=== PATIENT | male | born 1975 | race Caucasian/White ===

== ENCOUNTER 2017-09-17 08:52 | Emergency (ER) | payer OTHER ==
[2017-09-17 09:21] LABS: % BASOPHILS 0.5 % (0.0-2.0); % EOSINOPHILS 1.1 % (0.0-5.0); % LYMPHOCYTES 27.2 % (20.0-50.0); % MONOCYTES 5.1 % (2.0-10.0); % NEUTROPHILS 66.1 % (40.0-80.0); EOSINOPHILE ABSOLUTE 0.1 Th/cmm (0.1-0.4); HEMATOCRIT 45.5 % (41.0-60); HEMOGLOBIN 15.7 gm/dL (12-16); LYMPHOCYTE ABSOLUTE 2.6 Th/cmm (1.5-3.0); MEAN CORPUSCULAR HEMOGLOBIN 30.8 pg (26.0-30.0); MEAN CORPUSCULAR HGB CONC 34.5 pg (28.0-36.0); MEAN PLATELET VOLUME 7.8 fl; MONOCYTE ABSOLUTE 0.5 Th/cmm (0.3-1.0); NEUTROPHILE ABSOLUTE 6.3 Th/cmm (1.8-8.0); PLATELET COUNT 273 Th/cmm (150-400); RED BLOOD COUNT 5.11 Mil/cmm (4.30-5.70); RED CELL DISTRIBUTION WIDTH 11.9 % (11.5-20.0); WHITE BLOOD COUNT 9.5 Th/cmm (4.8-10.8)
[2017-09-17] MEDS: Sodium Chloride 0.45% 1,000 ML IV ONE (09:23)
--- NOTE | 2017-09-17 09:23 | ED Physician Chart ---
ED Chief Complaint/HPI - Patient Information Date Seen:: 09/17/17 Time Seen:: 09:07 Chief Complaint:: ABDOMINAL PAIN History of Present Illness:: THIS IS A 41 YO OBESE MALE WHO HAS HAD SEVERAL DAYS OF ABDOMINAL PAIN AND WAS GIVEN PROTONIX WHICH HE TOOK WITHOUT RELIEF. THE PATIENT ADMITS TO NAUSEA BUT NO VOMITING. HE DRINKS ONLY OCCASIONALLY AND DOES NOT SMOKE. HE DENIES PREVIOUS ABDOMINAL SURGERY. HE ADMITS TO HYPERTENSION BUT DENIES DIABETES AND HEART DISEASE. Allergies:: Allergies Allergy/AdvReac Type Severity Reaction Status Date / Time No Known Allergies Allergy Verified 09/17/17 09:02 Vitals:: Vital Signs - 8 hr 09/17/17 09:03 Temp 98.7 F HR 68 RR 17 BP 143/89 O2 Sat % 99 Historian:: Patient Review:: Nurse's Note Reviewed ED Review of Systems - Review of Systems General/Constitutional: No fever, No chills, No weight loss, No weakness, No diaphoresis, No edema, No loss of appetite Skin: No skin lesions, No rash, No bruising Head: No headache, No light-headedness Eyes: No loss of vision, No pain, No diplopia ENT: No earache, No nasal drainage, No sore throat, No tinnitus Neck: No neck pain, No swelling, No thyromegaly, No stiffness, No mass noted Cardio Vascular: No chest pain, No palpitations, No PND, No orthopnea, No edema Pulmonary: No SOB, No cough, No sputum, No wheezing GI: Nausea, No vomiting, No diarrhea, Pain (RIGHT UPPER QUADRANT), No pain, No melena, No hematochezia, No constipation, No hematemesis G/U: No dysuria, No frequency, No hematuria Musculoskeletal: No bone or joint pain, No back pain, No muscle pain Endocrine: No polyuria, No polydipsia Psychiatric: No prior psych history, No depression, No anxiety, No suicidal ideation Hematopoietic: No bruising, No lymphadenopathy Allergic/Immuno: No urticaria, No angioedema Neurological: No syncope, No focal symptoms, No weakness, No paresthesia, No headache, No seizure, No dizziness, No confusion, No vertigo ED Past Medical History - Past Medical History Obtainable: Yes Past Medical History: HTN Family History: None Social History: Non Smoker, Alcohol, No Drug Use Surgical History: other (LEFT ANKLE SURGERY) Psychiatricy History: None Medication: Reviewed Family Medical History - Family Member Mother History Unknown: Yes ED Physical Exam - Physical Examination General/Constitutional: Awake, Well-developed, well-nourished, Alert, No distress, GCS 15, Non-toxic appearing, Ambulatory Head: Atraumatic Eyes: Lids, conjuctiva normal, PERRL, EOMI Skin: Nl inspection, No rash, No skin lesions, No ecchymosis, Well hydrated, No lymphadenopathy ENMT: External ears, nose nl, Nasal exam nl, Lips, teeth, gums nl Neck: Nontender, Full ROM w/o pain, No JVD, No nuchal rigidity, No bruit, No mass, No stridor Respiratory: Nl effort/Exclusion, Clear to Auscultation, No Wheeze/Rhonchi/Rales Cardio Vascular: RRR, No murmur, gallop, rubs, NL S1 S2 GI: No tenderness/rebounding/guarding (RIGHT UPPER QUADRANT TENDERNESS WITH REBOUND), No organomegaly, No hernia, Normal BS's, Nondistended, No mass/bruits , No McBurney tenderness : No CVA tenderness Extremities: No tenderness or effusion, Full ROM, normal strength in all extremities, No edema, Normal digits & nails Neuro/Psych: Alert/oriented, DTR's symmetric, Normal sensory exam, Normal motor strength, Judgement/insight normal, Mood normal, Normal gait, No focal deficits Misc: Normal back, No paraspinal tenderness ED Labs/Radiology/EKG Results - Lab Results Results: Abnormal Lab Results 09/17/17 09/17/17 09/17/17 09:13 09:13 09:13 WBC 9.5 RBC 5.11 Hgb 15.7 Hct 45.5 MCV 89.0 MCH 30.8 H MCHC Differential 34.5 RDW 11.9 Plt Count 273 MPV 7.8 Neutrophils % 66.1 Lymphocytes % 27.2 Monocytes % 5.1 Eosinophils % 1.1 Basophils % 0.5 PTT (Actin FS) 28.4 Sodium 134 L Potassium 3.9 Chloride 101 Carbon Dioxide 25.4 Anion Gap 11.5 BUN 14 Creatinine 0.9 Est GFR ( Amer) > 60.0 Est GFR (Non-Af Amer) > 60.0 BUN/Creatinine Ratio 15.6 Glucose 101 Calcium 9.5 Total Bilirubin 0.6 AST 16 ALT 27 Alkaline Phosphatase 59 Total Protein 7.5 Albumin 4.3 Globulin 3.2 Albumin/Globulin Ratio 1.3 - Radiology Results Results: COLONIC DIVERTICULOSIS VERTEBRAL BODY LESIONS ED Assessment - Assessment General Assessment: GALLSTONES GASTRITIS ED Septic Shock - . Is Septic Shock (SBP<90, OR Lactate>4 mmol\L) present?: No - <6hrs of presentation: Vital Signs: Vital Signs - 8 hr 09/17/17 09:03 Temp 98.7 F HR 68 RR 17 BP 143/89 O2 Sat % 99 ED Reassessment (Disposition) - Reassessment Reassessment Condition:: Improved - Diagnosis Diagnosis:: GASTRITIS DIVERTICULOSIS VERTEBRAL BODY LESION OF THE LUMBAR SPINE - Aftercare/Follow up Instructions Aftercare/Follow-Up Instructions:: Counseled pt regarding lab results/diagnosis & need follow up, Refer to Discharge Instructions, Counseled pt & family regarding lab results/diagnosis & need follow up - Patient Disposition Discharge/Transfer:: Home Condition at Disposition:: Improved ED Discharge Plan - Patient Disposition Admit/Discharge/Transfer: PT DISCHARGED HOME Condition at Disposition: Improved Additional Instructions: TAKE THE PEPCID 20MG PO EACH MORNING, DON'T EAT SPICY OR FATTY FOODS. FOLLOW UP WITH YOUR PMD ON THE CT FINDINGS.
[2017-09-17 09:35] LABS: ALB/GLOB RATIO 1.3 (1.0-1.8); ALBUMIN 4.3 gm/dL (4.2-5.5); ALKALINE PHOSPHATASE 59 U/L (34-104); ANION GAP 11.5 (7.0-16.0); BILIRUBIN,TOTAL 0.6 mg/dL (0.3-1.0); BUN - UREA NITROGEN 14 mg/dL (7-25); CALCIUM SERUM 9.5 mg/dL (8.6-10.3); CARBON DIOXIDE 25.4 mEq/L (21.0-31.0); CHLORIDE 101 mEq/L (98-107); CREATININE - SERUM 0.9 mg/dL (0.7-1.3); GFR AFRICAN-AMERICAN > 60.0 ml/min (>90); GFR NON AFRICAN-AMERICAN > 60.0 ml/min; GLUCOSE 101 mg/dL (70-105); POTASSIUM SERUM 3.9 mEq/L (3.5-5.1); SGOT 16 U/L (13-39); SGPT/ALT 27 U/L (7-52); SODIUM SERUM 134 mEq/L (136-145); TOTAL PROTEIN,SERUM 7.5 gm/dL (6.0-8.3)
[2017-09-17] MEDS ORDERED: IOHEXOL 300mgI/mL 100 ML VIAL ONE (10:12)
--- NOTE | 2017-09-17 11:21 | Diagnostic Imaging Report ---
CT abdomen and pelvis with intravenous contrast Indication: Abdominal pain, rule out appendicitis Comparison: None, Technique: Axial images were obtained from the lung bases to the bilateral proximal femurs with IV contrast. Coronal reconstructions were made. total DLP: 960, CTDI 17.1 FINDINGS: Hypoventilatory and atelectatic changes of the lung bases are noted. There is fatty infiltration of the liver. No evidence of focal hepatic, splenic, or pancreatic lesions. No focal adrenal lesions. No evidence of hydronephrosis or focal renal lesions. Diverticulosis is noted. There is minimal haziness of the perisigmoid colonic fat planes. No evidence of appendicitis. No evidence of free fluid or free air. Nonenlarged retroperitoneal lymph nodes are noted. Advanced degenerative changes lower lumbar spine is noted. A few small sclerotic densities in the pelvis are noted. There is also a 6 mm sclerotic density of the L1 vertebral body on the left. IMPRESSION: No evidence of acute appendicitis Colonic diverticulosis. Minimal haziness of the perisigmoid fat planes is noted. Changes associated minimal diverticulitis cannot be excluded. No free fluid or free air Fatty liver. 6 mm sclerotic lesion of the L1 vertebral body on the left and additional few sclerotic lesions of the pelvis and proximal femurs. Findings may represent incidental bone islands. Other etiologies such as osseous metastatic disease is considered less likely but cannot be excluded. Correlation with old exams be helpful. Recommend short-term follow surveillance CT exam or nuclear medicine bone scan.
[2017-09-17 11:36] LABS: URINE BILIRUBIN NEGATIVE (NEGATIVE); URINE BLOOD NEGATIVE (NEGATIVE); URINE GLUCOSE (UA) NEGATIVE (NEGATIVE); URINE KETONE NEGATIVE (NEGATIVE); URINE LEUKOCYTE ESTERASE NEGATIVE (NEGATIVE); URINE MICROSCOPIC INDICATED? YES; URINE NITRATE NEGATIVE (NEGATIVE); URINE PROTEIN NEGATIVE (NEGATIVE); URINE SOURCE CLEAN C; URINE UROBILINOGEN 0.2 E.U./dL (0.2 - 1.0)
[2017-09-17 11:39] LABS: URINE CLARITY CLEAR (CLEAR); URINE COLOR YELLOW
[2017-09-17 11:41] LABS: URINE BACTERIA OCCASIONAL /hpf (NONE SEEN); URINE EPITHELIAL CELLS OCCASIONAL /lpf (FEW); URINE WBC 0-2 /hpf (0-5)
[2017-09-17 11:51] LABS: AMPHETAMINE URINE NEGATIVE (NEGATIVE); BARBITURATES URINE NEGATIVE (NEGATIVE); BENZODIAZEPINES QUAL URINE NEGATIVE (NEGATIVE); CANNABINOID THC POSITIVE (NEGATIVE); COCAINE METABOLITE QUAL URINE NEGATIVE (NEGATIVE); METHADONE URINE NEGATIVE (NEGATIVE); METHAMPHETAMINES QUAL URINE NEGATIVE (NEGATIVE); OPIATES (MORPHINE) QUAL. URINE NEGATIVE (NEGATIVE); PHENCYCLIDINE (PCP) URINE NEGATIVE (NEGATIVE); TRICYCLICS (TCA) QUAL. URINE NEGATIVE (NEGATIVE)
== END 2017-09-17 11:55 | disposition home or self-care (01) ==
LOC: ER 08:52
DX: K29.70 Gastritis, unspecified, without bleeding (principal); K57.90 Diverticulosis of intestine, part unspecified, without perforation or abscess without bleeding; G54.4 Lumbosacral root disorders, not elsewhere classified; I10 Essential (primary) hypertension
CPT/HCPCS: 99285; 96374; 74177; 36415; 80307; 86592; 85025; 85730; 81001; 80053; 87040 ×2; J1885; J7030; Q9967